=== PATIENT | female | born 2005 | race Asian ===

== ENCOUNTER 2024-01-16 15:32 | Emergency (ER) | payer OTHER ==
[~2024-01-16] VITALS: Ht 180.3 cm; Wt 76.6 kg
--- OUTSIDE RECORDS SUMMARY | ~2024-01-16 | XMS | Continuity of Care Document ---
Demographics + + + | Address | [address] | | | [place] [address] | + + + | Preferred Language | Unknown | + + + | Marital Status | Unknown | + + + | Orthodoxy Affiliation | Unknown | + + + | Race | | + + + | Ethnic Group | Not or | + + + Author + + + | Author | [facility] | + + + | Organization | [facility] | + + + | Address | [address] | | | [place] [address] | + + + | Phone | | + + + Care Team Providers + + + + | Care Isotope Technologist Name | Role | Phone | + + + + Unavailable | Unavailable | + + + + Unavailable | Unavailable | + + + + Allergies No information. Encounters No information. Functional Status No information. Immunizations No information. Medications + + + + | date | description | facility | + + + + | 2023-10-18 00:00 | Sucralfate 1 GM Oral | [facility] | | | Tablet | | + + + + | 2023-10-18 00:00 | sucralfate 1000 MG Oral | [facility] | | | Tablet | | + + + + Problems No information. Procedures No information. Results/Labs +--------+--------+ +---------+--------+---------+ | test | date | facility | value | unit | notes | +--------+--------+ +---------+--------+---------+ + + | Result panel 1 | + + + + + + + + + | No Results | (no date) | [facility] | No Results | (missing) | (missing) | | | | [facility] | | | | | | | [facility] | | | | + + + + + + + Social History + + + + | date | description | facility | + + + + | 2023-10-19 00:00 | Unknown if ever smoked | [facility] | | | | | + + + + Vital Signs + + + + + | date | measurement | value | units | + + + + + | 2023-10-18 00:00 | BMI | 23.1 | 1 | + + + + + | 2023-10-18 00:00 | BP_diastolic | 74 | mmHg | + + + + + | 2023-10-18 00:00 | BP_systolic | 108 | mmHg | + + + + + | 2023-10-18 00:00 | BSA | 1.9 | 1 | + + + + + | 2023-10-18 00:00 | heart_rate | 1|1| | completed | + + + + + | 2023-10-18 00:00 | heart_rate | 80 | /min | + + + + + | 2023-10-18 00:00 | height_metric | 176.53 | cm | + + + + + | 2023-10-18 00:00 | height_standard | 69.5 | in | + + + + + | 2023-10-18 00:00 | o2_saturation | 90 | % | + + + + + | 2023-10-18 00:00 | temperature_metric | 36.5 | C | | | | | | + + + + + | 2023-10-18 00:00 | | 97.7 | F | | | temperature_standar | | | | | d | | | + + + + + | 2023-10-18 00:00 | weight_metric | 71.85 | kg | + + + + + | 2023-10-18 00:00 | weight_standard | 158.4 | lb | + + + + +"
[~2024-01-16 15:32] MED LIST: BUSPIRONE HCL10 MG PO; ESCITALOPRAM OX20 MG PO; HYDROXYZINE PAM50 MG PO; NAPROSYN500 MG PO; NORETHINDRONE AC5 MG PO; PRAZOSIN HCL1 MG PO; PROMETHAZINE12.5 M1 PO
[2024-01-16] MEDS ORDERED: ondansetron HCL 4 MG/2 ML VIAL IV ONE (17:30)
[2024-01-16 17:47] LABS: BASOPHILS 0.6 % (0-2); EOSINOPHILS 0.4 % (0-6); HEMATOCRIT 44.6 % (35.0-50.0); HEMOGLOBIN 14.9 g/dL (12.0-18.0); LYMPHOCYTES 33.7 % (24-44); MCH 29.7 (27-36); MCHC 33.5 g/dl (30-36); MCV 88.8 fl (81-99); MONOCYTES 7.1 % (0-12); NEUTROPHILS 58.2 % (39-80); PLATELET COUNT 227 K/uL (140-440); RBC 5.03 M/ul (4.3-5.7); RDW 12.9 (10.5-15.0)
[2024-01-16 18:00] LABS: ALBUMIN 4.2 g/dL (3.4-5.0); ALBUMIN/GLOBULIN RATIO 1.35 (1.1-2.4); ANION GAP 11.8 (7-21); BILIRUBIN, TOTAL 0.5 ng/dL (0.2-1.0); BUN/CREATININE RATIO 5.45 (6.0-28.6); CALCIUM 8.8 mg/dL (8.5-10.1); CREATININE, SERUM 1.1 mg/dL (0.55-1.02); POTASSIUM 3.8 mmol/L (3.5-5.1); PROTEIN, TOTAL 7.3 g/dL (6.4-8.2)
[2024-01-16 18:19] LABS: BILIRUBIN, URINE NEGATIVE (negative); BLOOD/HGB, URINE TRACE-I (Negative); KETONE, URINE NEGATIVE (Negative); LEUK ESTERASE, URINE NEGATIVE (negative); NITRITE, URINE NEGATIVE (negative)
[2024-01-16 18:27] LABS: BACTERIA, URINE RARE /hpf (negative); CASTS, URINE NONE SEEN \\lpf; COLLECTION TYPE, URINE CLEAN CATCH; CRYSTALS, URINE NONE SEEN (0-1+); EPITHELIAL CELLS, URINE SQUAMOUS 1+ /lpf (0-1+); RED BLOOD CELLS, URINE 0-1 /hpf (0-5); REFLEX CULTURE, URINE No (No); WHITE BLOOD CELLS, URINE 0-1 /HPF (0-5)
[2024-01-16] MEDS ORDERED: MIRALAX17 GM PO (19:40)
[2024-01-16] MEDS ORDERED: MAGNESIUM CITRATE 300 ML BTL PO ONE (19:45)
[2024-01-16 20:00] VITALS: BP 104/79
== END 2024-01-16 20:05 | disposition home or self-care (01) ==
LOC: ED 15:32
PROVIDERS: Emergency Medicine
DX: K59.00 Constipation, unspecified (principal); Z91.011 Allergy to milk products; Z79.899 Other long term (current) drug therapy
CPT/HCPCS: 36415; 74018; 80053; 81001; 83690; 84703; 85025; 99284